=== PATIENT | female | born 1985 | race African-American/Black ===

== ENCOUNTER 2017-11-16 17:35 | Emergency (ER) | payer MEDICAID, OTHER ==
[~2017-11-16] VITALS: Ht 152.4 cm; Wt 54.5 kg
[~2017-11-16 17:35] MED LIST: ACET-3161
[2017-11-16 18:58] LABS: BASOPHILS % 0.7 % (0.0-2.0); HEMATOCRIT. 35.7 % (36.0-48.0); HEMOGLOBIN. 11.8 g/dL (12.0-16.0); MEAN CORPUSCULAR HEMOGLOBIN 26.4 pg (28.0-32.0); MEAN CORPUSCULAR VOLUME 79.8 fL (81.0-99.0); MEAN PLATELET VOLUME 7.2 fl (7.4-10.4); MONOCYTES % 9.1 % (2.0-8.0); NEUTROPHILS % 65.2 % (40.0-76.0); PLATELET 420 x1000/uL (130-400); RED BLOOD CELL COUNT 4.48 mill/uL (4.2-5.4)
[2017-11-16 19:00] LABS: CHLORIDE 103 mEq/L (98-107)
[2017-11-16 19:02] LABS: PROTHROMBIN TIME 10.5 sec (9.4-11.6)
[2017-11-16 19:20] LABS: CLARITY URINE CLOUDY (CLEAR); COLOR URINE YELLOW (YELLOW); KETONES URINE 2+ (NEGATIVE); LEUKOCYTE ESTERASE URINE NEGATIVE (NEGATIVE); NITRITE URINE NEGATIVE (NEGATIVE); OCCULT BLOOD URINE 3+ (NEGATIVE); PH URINE 6.5 (4.5-8.0); PROTEIN URINE NEGATIVE (NEGATIVE); SPECIFIC GRAVITY URINE 1.019 (1.005-1.030); UROBILINOGEN URINE 0.2 E.U./dL (0.2-1.0)
[2017-11-16 19:24] LABS: B-HCG QUANTITATIVE 142882 mIU/mL (<3)
[2017-11-16] MEDS ORDERED: SODIUM CHLORIDE 0.9% 1,000 ML IV ONE (19:35)
[2017-11-16 20:20] LABS: *BARBITURATES SCREEN URINE NEGATIVE (NEGATIVE); METHADONE URINE SCREEN NEGATIVE (NEGATIVE); OPIATES URINE SCREEN NEGATIVE (NEGATIVE); PHENCYCLIDINE URINE SCREEN NEGATIVE (NEGATIVE)
[2017-11-16 20:21] LABS: *BENZODIAZEPINES SCREEN URINE NEGATIVE (NEGATIVE); *COCAINE SCREEN URINE NEGATIVE (NEGATIVE)
[2017-11-16 20:28] LABS: *AMPHETAMINES SCREEN URINE PRESUMTIVE POSITIVE (NEGATIVE); CANNABINOID URINE SCREEN PRESUMTIVE POSITIVE (NEGATIVE)
[2017-11-16 23:51] VITALS: BP 138/69
== END 2017-11-17 00:09 | disposition home or self-care (01) ==
LOC: ER 18:53
DX: O20.0 Threatened abortion (principal); O26.891 Other specified pregnancy related conditions, first trimester; Z3A.10 10 weeks gestation of pregnancy; O99.321 Drug use complicating pregnancy, first trimester; F15.90 Other stimulant use, unspecified, uncomplicated; F12.90 Cannabis use, unspecified, uncomplicated
CPT/HCPCS: 36415; 76801; 76817; 80053; 80305; 81003; 84702; 85025; 85610; 86850; 86900; 86901; 99285; J7030; Z7610

== ENCOUNTER 2022-11-20 19:07 | Emergency (ER) | payer MEDICAID, OTHER ==
[~2022-11-20] VITALS: Ht 154.9 cm; Wt 59.5 kg
[2022-11-20 19:27] VITALS: BP 125/80; PULSE 120; TEMP 99.2; O2SAT 100
[2022-11-20 21:02] LABS: BASOPHILS % 0.9 % (0.0-2.0); HEMATOCRIT. 32.4 % (36.0-48.0); HEMOGLOBIN. 10.7 g/dL (12.0-16.0); LYMPHOCYTES % 22.5 % (20.0-50.0); MEAN CORPUSCULAR HEMOGLOBIN 27.5 pg (28.0-32.0); MEAN CORPUSCULAR VOLUME 83.2 fL (81.0-99.0); MEAN PLATELET VOLUME 6.6 fl (7.4-10.4); MONOCYTES % 10.2 % (2.0-8.0); NEUTROPHILS % 64.4 % (40.0-76.0); PLATELET 478 x1000/uL (130-400); RED CELL DISTRIBUTION WIDTH 13.8 % (11.6-14.6)
[2022-11-20 21:13] LABS: CHLORIDE 106 mEq/L (98-107)
[2022-11-20 21:15] LABS: PARTIAL THROMBOPLASTIN TIME 31.4 sec (23.4-31.0); PROTHROMBIN TIME 10.7 sec (9.6-11.0)
[2022-11-21] MEDS ORDERED: HYDR-3735 MT (04:39)
[2022-11-21] MEDS ORDERED: LORAZEPAM 1MG TABLET PO ONE (04:45)
== END 2022-11-21 04:30 | disposition left against medical advice (07) ==
LOC: ER 19:07
DX: R07.89 Other chest pain (principal); F12.10 Cannabis abuse, uncomplicated; Z98.890 Other specified postprocedural states
CPT/HCPCS: 36415; 71045; 80053; 84484; 85025; 93005; 99285